=== PATIENT | female | born 1945 | race Hispanic/Latino ===

== ENCOUNTER 2017-02-04 05:57 | Day surgery (SDC) | payer MEDICARE ==
[2017-01-31 11:27] LABS: Basophils % (Auto) 1.2 % (0.0-1.8); Eosinophils % (Auto) 2.7 % (0.0-4.3); Hematocrit 45.2 % (30.3-42.9); Hemoglobin 15.2 gm/dl (10.1-14.3); Mean Corpuscular HGB Conc 34 % (30-34); Mean Corpuscular Hemoglobin 30 pg (28-32); Mean Corpuscular Volume 88 fl (79-97); Platelet Count 211 K/mm3 (140-440); Red Blood Count 5.12 M/mm3 (3.65-5.03); Red Cell Distribution Width 15.5 % (13.2-15.2); White Blood Count 4.7 K/mm3 (4.5-11.0)
--- NOTE | 2017-01-31 11:32 | Anesthesia Consultation ---
Anesthesia Consult and Med Hx Date of service: 01/31/17 - Airway Anesthetic Teeth Evaluation: Dentures, Edentulous ROM Head & Neck: Adequate Mental/Hyoid Distance: Adequate Mallampati Class: Class II Intubation Access Assessment: Probably Good - Pulmonary Exam CTA: Yes - Cardiac Exam Cardiac Exam: RRR - Pre-Operative Health Status ASA Pre-Surgery Classification: ASA3 Proposed Anesthetic Plan: General - Pulmonary Hx Smoking: Yes (CIGARETTES 1 PPD X 51 YRS, QUIT 01/2015) COPD: Yes (good exercise tolerance) Hx Sleep Apnea: No - Cardiovascular System Hx Hypertension: Yes (FOR 10+ YRS) Hx Cardia Arrhythmia: Yes (h/o a flutter, s/p ablation) - Central Nervous System Hx Back Pain: Yes Hx Psychiatric Problems: No - Other Systems Hx Cancer: No - Additional Comments Anesthesia Medical History Comments: cardiac clearance on chart. Perfusion scan WNL. EF 60-65%
[2017-01-31 11:49] LABS: Alanine Aminotransferase 40 units/L (7-56); Albumin 4.2 g/dL (3.9-5); Alkaline Phosphatase 96 units/L (35-129); Amylase 61 units/L (27-131); Anion Gap 15 mmol/L; Blood Urea Nitrogen 16 mg/dL (7-17); Calcium 9.4 mg/dL (8.4-10.2); Carbon Dioxide 29 mmol/L (22-30); Chloride 90.2 mmol/L (98-107); Glucose 97 mg/dL (65-100); Potassium 4.2 mmol/L (3.6-5.0); Sodium 130 mmol/L (137-145); Total Protein 8.3 g/dL (6.3-8.2)
--- NOTE | 2017-02-03 17:22 | Admit Criteria Form ---
Admission Criteria Documentation: AMBULATORY SURGERY EXCEPTION CRITERIA Ambulatory Surgery Exception Criteria ( Place 'X' for any and all applicable criteria): Surgery or procedure performed on ambulatory basis may require inpatient stay for[A] ANY ONE of the following(1)(2)(3)(4)(5)(6)(7)(8)(9): [X] I. A preoperative situation, condition, or finding that warrants inpatient stay as indicated by ANY ONE of the following: [] a) Inpatient care needed because of severity of a disease or condition rather than the surgery (eg, severe cardiac or respiratory disease, severe infection) (15) (16 ) (17) (18) [] b) Emergent procedure (eg, angioplasty for acute ischemia)(19) [] c) Complex surgical approach or situation as indicated by ANY ONE of the following(3): [] i) Open approach needed instead of usual endoscopic, transcatheter, or other less invasive procedure [] ii) Difficult approach because of previous operation [] iii) Airway monitoring required after open neck procedures(20)(21) [] iv) Large mass requiring unusually extensive dissection [] v) Additional complicating feature requiring inpatient care (eg, drain management)(22(23): [X] d) Major surgery in a pt with high anesthetic risk as indicated by ANY ONE of the following (2)(3)(5)(7)(8): [X] i) ASA risk class III or higher (severe systemic disease impairing function) [D] [] ii) Advanced age (eg, older than 85 years)(14)(24) [] iii) Symptomatic heart failure(25) [] iv) Symptomatic asthma or COPD(8)(21) [] v) Morbid obesity with hemodynamic or respiratory problems(20)( 21)(26)(27) [] vi) Obstructive sleep apnea(20)(21) [] vii) Former premature infants who are younger than 60 weeks [] viii) High risk for severe postoperative abnormalities (eg, severe postoperative hypocalcemia after parathyroidectomy for severe hyperparathyroidism)(27)( 28) [] ix) Unstable angina(25) [] e) Drug-related risk requiring inpatient stay as indicated by ANY ONE of the following(5)(10)(14)(32)(33) [] i) Procedure requires discontinuing drugs or other therapy (eg , antiarrhythmic medication, antiseizure medication), which necessitates inpatient observation or treatment.(18)(31) [] ii) Major surgery and high risk drug use as indicated by ANY ONE of the following: [] 1) Active abuse of cocaine or similar drug [] 2) Monoamine oxidase inhibitor use [] 3) Other drug identified as posing risk [] f) Inadequate outpatient care situation as indicated by ANY ONE of the following(5)(10)(14)(32)(33) [] i) Patient lives remote from medical facility and procedure has urgent complication potential, and temporary nearby residence cannot be arranged [] ii) Patient will have postprocedure incapacitation and inadequate assistance at home, or alternative level of care cannot be arranged. [] iii) Patient will have long general anesthesia or procedure side effect resolution time, and competent person to stay with patient on first postoperative night at home or alternative level of care cannot be arranged. []iv) Other inadequate outpatient situation that cannot be handled by other means [] II. A perioperative event, condition, or finding that warrants inpatient stay as indicated by ANY ONE of the following (1)(2)(3): [] a) Inadequate physiologic recovery: cardiovascular, respiratory, or hemodynamic status not normal or near preoperative baseline(18) [] b) Hemodynamic instability [] c) Patient not alert with near normal or baseline mental status [] d) Temperature not normal or as expected and not appropriate for outpatient treatment of condition [] e) Ambulatory or appropriate activity level status not yet achieved post procedure [E](34)(35)(36) [] f) Operative site not appropriate (eg, unexpected or excessive drainage or bleeding) [] g) Postoperative effects not resolved or adequately managed (eg, significant pain or vomiting not appropriate for outpatient or next level of care)(10)(12) [] h) Complicating features requiring inpatient care as indicated by ANY ONE of the following(37): [] i) Severe complications of procedure (eg, bowel injury, airway compromise, vascular injury,severe hemorrhage) [] ii) Extensive (eg, dissection far beyond usual scope of procedure ) or prolonged (eg, 120 minutes beyond usual) surgery needed requiring inpatient postoperative care [] iii) Conversion to an open or complex procedure that requires inpatient care (eg, open vs laparoscopic cholecystectomy, abdominal vs vaginal hysterectomy)(38) [] iv) Comorbid condition or test result identified during or post procedure that requires inpatient care (7) [] v) Malignant hyperthermia(30) [] vi) Other complicating feature requiring inpatient care(22)(23) Inpatient stay may be needed until ALL of the following are present (1)(2)(3)(4) (5)(6)(10)(14)(33)(40): []a) Physiologic recovery: cardiovascular, respiratory, and hemodynamic status normal or near preoperative baseline []b) Hemodynamic stability []c) Patient alert, with near normal or baseline mental status []d) Temperature appropriate: patient afebrile or temperature appropriate for outpt treatment of condition []e) Activity level appropriate: ambulatory or appropriate activity level post procedure []f) Operative site appropriate as indicated by ALL of the following: []i) Site dry or with expected drainage []ii) Any blood noted is as expected for procedure. []g) Postoperative effects resolved or managed as indicated by ALL of the following: []i) Pain management appropriate for outpatient (or next level of) care(10) []ii) Minimal nausea and vomiting: if present, successfully treated with oral medication(12) []iii) Headache, dizziness, or drowsiness (if present) are mild. []h) Voiding status acceptable as indicated by ANY ONE of the following: []i) Voiding spontaneously []ii) No voiding but instructions given for follow-up in 6 to 8 hours []iii) Urinary catheter in place, and instructions given for follow-up []i) Complicating features requiring inpatient care manageable at a lower level of care(37) []j) Comorbid conditions manageable at a lower level of care(37) The original [employer] content created by [employer] has been revised. The portions of the content which have been revised are identified through the use of italic text or in bold, and [facility] [employer] has neither reviewed nor approved the modified material. All other unmodified content is copyright [employer]. Please see references footnoted in the original [employer] edition 2016 Admission Criteria Met: Yes
[2017-02-04] MEDS ORDERED: PEPCID PO NR (06:00)
[2017-02-04] MEDS ORDERED: NACL 0.9% 1000 ML 1,000 ML IV SCH (06:00)
[2017-02-04] MEDS ORDERED: ANCEF/STERILE WATER 2 GM/20 ML 2 GM/20 ML SYRINGE IV NR (06:00)
[2017-02-04] MEDS ORDERED: DIPRIVAN 10 MG/ML IV ONE (07:06)
[2017-02-04] MEDS ORDERED: NACL BACTERIOSTATIC INFILTRATI ONE (07:06)
[2017-02-04] MEDS ORDERED: SUBLIMAZE ONE (07:07)
[2017-02-04] MEDS ORDERED: XYLOCAINE MPF 2% ONE (07:10)
[2017-02-04] MEDS ORDERED: ZEMURON IV ONE (07:10)
[2017-02-04] MEDS ORDERED: MARCAINE 0.5% 0 ML INFILTRATI ONE (07:12)
[2017-02-04] MEDS ORDERED: MARCAINE-EPI/PF 0.5%-1:200,000 INFILTRATI ONE ×2 (07:13→08:09)
--- NOTE | 2017-02-04 07:29 | Anesthesia Day of Surgery ---
Anesthesia Day of Surgery - Day of Surgery Patient Examined: Yes Patient H&P Reviewed: Yes Patient is NPO: Yes Beta Blockers: Yes
[2017-02-04] MEDS ORDERED: ceFAZolin 2 GM in NACL 0.9% 100 ML IV ONE (07:30)
[2017-02-04] MEDS ORDERED: ZOFRAN ONE ×2 (07:48→09:27)
[2017-02-04] MEDS ORDERED: DECADRON ONE (07:48)
[2017-02-04] MEDS ORDERED: ePHEDrine SULFATE ONE (07:54)
[2017-02-04] MEDS ORDERED: NEOSTIGMINE ONE (08:01)
[2017-02-04] MEDS ORDERED: ROBINUL ONE (08:01)
[2017-02-04] MEDS ORDERED: NACL 0.9% IR ONE (08:08)
[2017-02-04] MEDS ORDERED: TORADOL ONE (08:14)
[2017-02-04] MEDS ORDERED: DILAUDID ONE (08:23)
--- NOTE | 2017-02-04 08:30 | Discharge Summary ---
Short Stay Discharge Plan Activity: other (observe x 4 hrs then november d/c if stable. ice chips today. cl liq in am. solid low fat diet in 48hrs. keep dressings dry x 5 days. no lifting over 5 lbs x 2 wks) Weight Bearing Status: Partial Weight Bearing Diet: other Wound: keep clean and dry Follow up with: FAREED ANDREA MD [Staff Physician] - 7 Days
--- NOTE | 2017-02-04 08:33 | Post Operative Note ---
Pre-op diagnosis: GB disease Post-op diagnosis: same Findings: distended GB with surrounding omental adhesions Procedure: lap GB Anesthesia: GETA Surgeon: FAREED ANDREA Machinist Set Up: STACI ELLIS Estimated blood loss: none Specimen disposition: to lab Condition: stable Disposition: PACU
[2017-02-04] MEDS ORDERED: ZOFRAN IV PRN (08:37)
[2017-02-04] MEDS: DILAUDID IV PRN ×2 (08:45→09:17)
[2017-02-04] MEDS ORDERED: LOPRESSOR IV ONE ×2 (08:48→08:55)
--- NOTE | 2017-02-04 09:28 | Post Anesthesia Evaluation ---
- Post Anesthesia Evaluation Patient Participated: Yes Airway Patent: Yes Stable Respiratory Function: Yes Temp > 96.8F: Yes Pain Manageable: Yes Adequeate Hydration: Yes Anesthesia Complications: No Block Receding Appropriately: Not Applicable
[2017-02-04] MEDS ORDERED: ZOFRAN IV ONE (09:30)
[2017-02-04 12:16] VITALS: BP 152/81
[2017-02-04] MEDS ORDERED: PHENERGAN PO ONE (12:32)
[2017-02-04] MEDS ORDERED: TRANSDERM-SCOP TD ONE (12:33)
--- NOTE | 2017-02-18 21:02 | Operative Report ---
PREOPERATIVE DIAGNOSIS: Gallbladder disease. POSTOPERATIVE DIAGNOSIS: Gallbladder disease. PROCEDURE: Laparoscopic cholecystectomy. SURGEON: Sherif Wood MD. ANESTHESIA: General. ESTIMATED BLOOD LOSS: Minimal. COMPLICATIONS: None. DESCRIPTION OF PROCEDURE: The patient was taken to the operating room, prepped and draped in usual sterile fashion. Veress needle was inserted and CO2 insufflation begun. A 5 mm trocar was then inserted and camera inserted. All other trocars were inserted under direct visualization. Gallbladder was then grasped at the fundus and infundibulum and retracted towards the right subphrenic space. Dissection was then carried out along the Calot's triangle. The cystic duct and artery were delineated in their entire course. Both were then doubly clipped and transected. Hook electrocautery was used to dissect the gallbladder from the overlying liver bed. Prior to complete removal, the liver bed was inspected for bleeding and noted to be dry. The cystic duct and artery stumps were once again visualized. The clips were noted to be securely in place with no evidence of bleeding or bile leak. Gallbladder was then completely freed and brought out through the subxiphoid port. This area was inspected for bleeding and noted to be dry. Subxiphoid trocar was then gently reinserted. All other 5 mm ports were removed under direct visualization. No bleeding or oozing noted. The subxiphoid port was then used to expel the CO2 and the trocar removed. The fascia was closed with a [id number] 0 Vicryl suture. The skin at all port sites was closed with subcuticular 4-0 Vicryl. 0.5% Marcaine was infiltrated over the port sites for postoperative pain relief. Fluffs and pressure dressings applied. The patient tolerated procedure well and left the OR in stable condition. JOB# [id number] FP/NTS
== END 2017-02-04 13:00 | disposition home or self-care (01) ==
LOC: OR 05:57
PROVIDERS: ATTEND Surgery
DX: K81.1 Chronic cholecystitis (principal); J44.9 Chronic obstructive pulmonary disease, unspecified; I10 Essential (primary) hypertension; Z87.891 Personal history of nicotine dependence; Z86.79 Personal history of other diseases of the circulatory system
CPT/HCPCS: 36415; 47562; 80053; 82150; 85025; 88304; J0690; J1100; J1170; J1885; J2405; J2704; J2710; J3010; J7030; Q0169